=== PATIENT | female | born 1940 | race Caucasian/White ===

== ENCOUNTER 2021-02-09 15:03 | Emergency (ER) | payer MEDICARE, MEDICAID ==
[~2021-02-09] VITALS: Ht 154.9 cm; Wt 65.0 kg
[~2021-02-09 15:03] MED LIST: ATOR10TA69 PO; FERR-43 PO; LISI10TA26 PO; METF500T PO; OMEP20TA2 PO; RANI150T7 PO
[2021-02-09] MEDS ORDERED: WALK1EAC55 MC (18:07)
[2021-02-09] MEDS ORDERED: ACET650T37 MT (18:07)
[2021-02-09 18:41] VITALS: BP 130/89
== END 2021-02-09 18:41 | disposition home or self-care (01) ==
LOC: ER 15:03
DX: M25.551 Pain in right hip (principal); M25.562 Pain in left knee; M25.561 Pain in right knee; E11.9 Type 2 diabetes mellitus without complications; I10 Essential (primary) hypertension; W07.XXXA Fall from chair, initial encounter; Y93.89 Activity, other specified; Y92.9 Unspecified place or not applicable
CPT/HCPCS: 73502; 73562; 99284